=== PATIENT | male | born 1980 | race Caucasian/White ===

== ENCOUNTER 2017-05-07 07:45 | Outpatient (CLI) ==
[2013-03-22 12:25] VITALS: BMI 30.2
--- NOTE | 2017-05-07 09:09 | CT ---
EXAM: CT PARANASAL SINUSES HISTORY: Sinusitis TECHNIQUE: CT paranasal sinuses without contrast. Detailed axial sections. Coronal and sagittal re formations. FINDINGS: No comparison. Frontal sinuses: Clear Ethmoid sinuses: Clear Sphenoid sinuses: Subtle mucosal thickening mostly in the left cell. Maxillary sinuses: There is a 12 mm mucosal based mass in the lower right maxillary sinus probably r epresenting a mucous retention cyst, less likely polyp. Minimal mucosal thickening in the floor of t he left maxillary sinus. General: No sinus fluid. There is mild nasal septal deviation toward the left anteriorly. Turbinat es appear normal. No obvious postop changes of the sinuses. IMPRESSION: 1. Chronic sinus disease mostly involving the maxillary sinuses although to a minimal degree of the sphenoid cells. 2. Mild nasal septal deviation.
== END 2017-05-07 07:46 | disposition home or self-care (01) ==
LOC: RAD 07:45
PROVIDERS: ATTEND Family Medicine
DX: J32.9 Chronic sinusitis, unspecified (principal)